=== PATIENT | female | born 1950 | race Caucasian/White ===

== ENCOUNTER 2017-09-12 13:31 | Outpatient (CLI) | payer MEDICARE, BC ==
[~2017-09-12] VITALS: Ht 172.7 cm; Wt 101.2 kg
[~2017-09-12 13:31] MED LIST: NKM
[2017-09-12 14:17] VITALS: BP 127/74
[2017-09-12] MEDS ORDERED: VITAMIN D400 INTLU ORAL (15:23)
[2017-09-12] MEDS ORDERED: PROLIA60 MG/1 ML SUBQ (15:23)
[2017-09-12] MEDS ORDERED: CALTRATE+D3 PL1 EACH PO (15:23)
[2017-09-12] MEDS ORDERED: VIBERZI100 MG PO (15:23)
[2017-09-12] MEDS ORDERED: LEVOTHYROXINE88 MCG ORAL (15:23)
--- NOTE | 2017-09-12 15:27 | GI Initial Consult Note ---
History of Present Illness General Date patient seen: Sep 12, 2017 Time patient seen: 15:11 Referring physician: [email or web address] Reason for Consultation: COLONOSCOPY Present Illness HPI 67 year old female patient referred by Dr. Hummel with history of IBS- D presents today for routine colonoscopy screening. She presents with c/o of diarrhea. Positive for bloody stools. Denies any weight loss. Takes probiotics occasional. Requires specific type of foods to be able to digest. No signs of abuse or neglect. Patient is not fall risk. Home Meds Reported Medications Vitamin D (Vitamin D3) Unknown Strength Tablet, ORAL DAILY, TAB 09/12/17 Ca Carb/D3/Mag Ox/Qualitative Field Coordinator/Kaz/Zn (Caltrate+D3 Plus Mineral Minis) Unknown Strength Tablet, PO, TAB 09/12/17 Denosumab (Prolia) 60 Mg/1 Ml Syringe, 60 MG SUBQ EVERY 6 MONTHS, EA 09/12/17 Levothyroxine Sodium* (LEVOTHYROXINE SODIUM*) 88 Mcg Tablet, 88 MCG ORAL DAILY, TAB Take in the morning on an empty stomach, at least 30 minutes before food. 09/12/17 Eluxadoline (Viberzi) 100 Mg Tablet, 100 MG PO, TAB 09/12/17 No Known Medications* (NKM - No Known Medications*) ., 0 ., 0 Refills 01/15/14 Med list reviewed/reconciled: Yes Allergies: Coded Allergies: SULFA (SULFONAMIDE ANTIBIOTICS) (Unverified Allergy, Unknown, 01/15/14) Patient History History Provided By: Patient, Medical Record PMH Narrative UTI GERD IBS-D HTN Hypothyroidism Cholesterol Depression Past Surgical History: tonsillectomy thyroidectomy exploratory surgery @ age 37. Family History Narrative Mother >> breast CA Social History: Reports: alcohol use - occasional, other - coffee Review of Systems All Other Systems: negative except mentioned in HPI Physical Exam Vital Signs Date Time Temp Pulse Resp B/P (MAP) Pulse Ox O2 Delivery O2 Flow Rate FiO2 09/12/17 14:17 98.4 81 16 127/74 95 98.4 Sp02 EP Interpretation: reviewed, normal General Appearance: well appearing, no apparent distress, alert Head: normocephalic EENT: PERRL/EOMI, normal ENT inspection Neck: supple Respiratory: normal breath sounds, no respiratory distress Cardiovascular: normal rate Gastrointestinal: normal inspection, non tender, soft, normal bowel sounds, non -distended Rectal: deferred Genitourinary: no CVA tenderness Musculoskeletal: normal inspection, back normal Neurologic: normal inspection, alert, oriented x3, responsive Psychiatric: normal inspection, judgement/insight normal, memory normal Skin: normal inspection, normal color, no rash, warm/dry, palpation normal, well hydrated Lymphatic: normal inspection, no adenopathy GI: Plan Problems: (1) GERD (gastroesophageal reflux disease) (2) History of IBS (3) HTN (hypertension) (4) HLD (hyperlipidemia) (5) Depression (6) Hypothyroidism Plan colonoscopy scheduled 09/20/17. - CLD & (Nulytely/Suprep/Movi-Prep) prep instructions given and acknowledged by patient. - NPO @ MN day prior procedure explained. - labs to be drawn day of procedure >> Celiac panel Seen with Dr. Manzano. Thank you for this patient referral. Ally Mckay N.P. Sep 12, 2017 15:26
== END 2017-09-12 14:05 | disposition home or self-care (01) ==
LOC: PAN 13:31
DX: R19.7 Diarrhea, unspecified (principal); K21.9 Gastro-esophageal reflux disease without esophagitis; I10 Essential (primary) hypertension; E78.5 Hyperlipidemia, unspecified; F32.9 Major depressive disorder, single episode, unspecified; E03.9 Hypothyroidism, unspecified; K58.9 Irritable bowel syndrome, unspecified; E06.0 Acute thyroiditis; Z88.2 Allergy status to sulfonamides; Z80.3 Family history of malignant neoplasm of breast
CPT/HCPCS: 99201

== ENCOUNTER 2017-10-08 10:20 | Outpatient (CLI) | payer MEDICARE, BC ==
[~2017-10-08 10:20] MED LIST changes: +ADVIL100 MG ORAL; +ATORVASTATIN CA20 MG ORAL; +CALTRATE+D3 PL1 EACH PO; +LEVOTHYROXINE88 MCG ORAL; +LOSARTAN POTASS25 M1 PO; +PROLIA60 MG/1 ML SUBQ; +TRINTELLIX PO; +VASCEPA1 GM PO; +VIBERZI100 MG PO; +VITAMIN D400 INTLU ORAL
--- NOTE | 2017-10-08 11:26 | GI Progress Note ---
Assessment/Plan Problems: (1) Diarrhea ICD Codes: R19.7 - Diarrhea, unspecified SNOMED: 05812704 (2) History of IBS ICD Codes: Z87.19 - Personal history of other diseases of the digestive system SNOMED: 13559198133054 Status: stable Status Narrative Seen with Dr. Manzano. Assessment/Plan SUMMARY OF FINDINGS reviewed with patient: 1. Diverticulosis in the left colon. 2. Internal hemorrhoids medium. 3. One rectal polyp removed. 4. Status post biopsy of the right and left colon to rule out microscopic colitis. RECOMMENDATIONS: Follow up biopsy results and treat accordingly. >> negative RTC PRN repeat colonoscopy x 5 years The patient was seen and examined at bedside and all new and available data was reviewed in the patients chart. I agree with the above findings, impression and plan. (Patient seen earlier today. Signature stamp does not reflect patient encounter time.). - Elias Manzano MD Subjective Gastrointestinal/Abdominal: Reports: no symptoms Subjective diarrhea resolved Objective T 98 BP 135/68 P 63 96 RA General Appearance: WD/WN, no apparent distress, alert Cardiovascular: normal rate Respiratory/Chest: normal breath sounds, no respiratory distress Abdominal Exam: normal bowel sounds, non tender, soft Extremities: normal range of motion, non-tender Ramez Mckay NP October 08, 2017 11:26
== END 2017-10-08 10:55 | disposition home or self-care (01) ==
LOC: PAN 10:20
DX: R19.7 Diarrhea, unspecified (principal); Z87.19 Personal history of other diseases of the digestive system; K57.90 Diverticulosis of intestine, part unspecified, without perforation or abscess without bleeding; K64.8 Other hemorrhoids; K62.1 Rectal polyp
CPT/HCPCS: 99212